=== PATIENT | female | born 1970 | race Caucasian/White ===

== ENCOUNTER 2025-10-23 11:24 | Emergency (ER) | payer OTHER ==
[~2025-10-23] VITALS: Ht 162.6 cm; Wt 61.1 kg
[2025-10-23 11:32] VITALS: BP 124/58; PULSE 80; RESP 18; TEMP 98.4; O2SAT 98
[2025-10-23 11:46] LABS: APPEARANCE,URINE CLEAR (CLEAR); GLUCOSE, URINE (UA) NEGATIVE (NEGATIVE); LEUKOCYTE ESTERASE ,URINE LARGE (NEGATIVE); NITRATE,URINE NEGATIVE (NEGATIVE); OCCULT BLOOD,URINE NEGATIVE (NEGATIVE); SPECIFIC GRAVITIY, URINE 1.010 (1.003-1.030)
[2025-10-23 12:03] LABS: SQUAMOUS EPITHELIAL CELL,UR Moderate /LPF (None Seen)
[2025-10-23] MEDS: CefTRIAXone SODIUM 1 GM/VIAL IM ONE (12:48)
[2025-10-23] MEDS: LIDOCAINE/PF 1% 2 ML VIAL IM ONE (12:48)
[2025-10-23] MEDS: DOXYCYCLINE HYCLATE 100 MG TABLET PO ONE (12:48)
== END 2025-10-23 13:51 | disposition home or self-care (01) ==
LOC: EMS 11:24
DX: N39.0 Urinary tract infection, site not specified (principal); Z88.2 Allergy status to sulfonamides; Z88.5 Allergy status to narcotic agent
CPT/HCPCS: 99283; 81001; 87086; 87491; 87591; 96372; J0696; J3490